=== PATIENT | female | born 1980 | race Caucasian/White ===

== ENCOUNTER → 2022-07-19 12:39 | Outpatient (CLI) | payer SELFPAY ==
--- NOTE | 2022-07-19 12:40 | DI.RAD.S_ITS ---
PROCEDURE: XR LUMBAR SPINE 2-3V INDICATIONS: LBP x 3 days, exercise injury TECHNIQUE: 3 views of the lumbar spine were acquired. COMPARISON: None. FINDINGS: Bones: This patient has transitional lumbar anatomy. For the purposes of this examination, the level with the last well-developed pair of ribs is considered to be T12. By this numbering scheme, the L1 level has a tiny vestigial rib seen on the left. The S1 level is partially sacralized. There is a rudimentary disc space seen at S1-S2. No displaced fractures are seen. No suspicious lytic or blastic lesions are seen. Disc heights are well preserved. Mild lower lumbar spine facet arthropathy. Soft tissues: Overlying bowel gas pattern is normal. No suspicious soft tissue calcifications. IMPRESSION: Mild lower lumbar spine facet arthropathy is seen. Transitional lumbar anatomy noted. If it would be helpful for clinical management decision making, please consider a dedicated, scheduled lumbar spine MRI for further evaluation (assuming that there is no contraindication). Dictated by: Paulino Ramirez M.D. on 07/19/2022 at 12:07 Approved by: Paulino Ramirez M.D. on 07/19/2022 at 12:08
== END ==
PROVIDERS: Referring Provider Student in an Organized Health Care Education/Training Program; Visit Provider Student in an Organized Health Care Education/Training Program
DX: M47.816 Spondylosis without myelopathy or radiculopathy, lumbar region (principal); M54.50 Low back pain, unspecified; G89.11 Acute pain due to trauma
CPT/HCPCS: 72100